=== PATIENT | female | born 1970 | race Caucasian/White ===

== ENCOUNTER 2017-10-05 14:09 | Emergency (ER) | payer SELFPAY ==
[~2017-10-05] VITALS: Ht 167.6 cm; Wt 121.7 kg
[2017-10-05] MEDS ORDERED: BENADRYL25 MG PO (15:20)
[2017-10-05] MEDS ORDERED: CALAMINE LOTIO120 ML TP (15:20)
[2017-10-05 15:37] VITALS: BP 162/78
== END 2017-10-05 15:41 | disposition home or self-care (01) ==
LOC: EME 14:09
DX: L25.9 Unspecified contact dermatitis, unspecified cause (principal)
CPT/HCPCS: 99281; 99284; J1100